=== PATIENT | female | born 1945 | race Caucasian/White ===

== ENCOUNTER → 2016-10-04 | Outpatient (CLI) | payer MEDICARE, BC ==
--- NOTE | 2016-10-04 15:43 | NM ---
EXAMINATION TYPE: NM hepatobiliary w EF DATE OF EXAM: 10/04/2016 8:53 AM COMPARISON: Gallbladder ultrasound August 07, 2016. HISTORY: Right upper quadrant pain per order TECHNIQUE: After the intravenous administration of 5.3 mCi Tc 99m Mebrofenin hepatobiliary scintigrap hy is performed. Immediate images post injection. FINDINGS: There is satisfactory initial accumulation of tracer by the liver. The gallbladder is visualized wit hin 20 minutes. The small bowel activity is noted within 30 minutes. At one hour 8 ounces of oral e nsure plus is given to mimic CCK and gallbladder ejection fraction is calculated at 16 %, diminished from the normal range. Therefore there is no scintigraphic evidence of cystic or common bile duct ob struction to suggest acute cholecystitis. Overall diminished ejection fraction is consistent with chr onic cholecystitis or gallbladder dyskinesia. IMPRESSION: The ejection fraction is 16%, diminished from the normal range, scintigraphic findings ar e consistent with gallbladder dyskinesia.
== END | disposition home or self-care (01) ==
LOC: RADNMMAIN 06:55
PROVIDERS: ATTEND Nurse Practitioner Family
DX: R10.811 Right upper quadrant abdominal tenderness (principal)
CPT/HCPCS: 78226; A9537